=== PATIENT | female | born 1955 | race Caucasian/White ===

== ENCOUNTER → 2016-08-31 | Outpatient (CLI) | payer OTHER ==
[~2016-08-31] VITALS: Ht 167.6 cm; Wt 86.9 kg
[~2016-08-31] MED LIST: 00186-0370-20 IH; ALLI60 MG PO; FLONASEALLERGY NS; LIPITOR20 MG PO; MINIPRESS 1M1 MG/CAP PO; MUCUS RELIEF400 M1 PO; NAPROXEN 3375 MG/TAB PO; NORVASC 10MG10 MG PO; PROVENTIL0.09 MG/A1 IH; SINGULAIR 110 MG/TAB PO; SPIRIVA RE2.5 MCG/Ac IH; VISTARIL50 MG PO; ZOLOFT 100MG100 MG PO
[2016-08-31 11:00] VITALS: BP 142/94; PULSE 63
[2016-08-31 11:39] VITALS: BP 127/66; PULSE 80
[2016-08-31 11:40] VITALS: BP 140/78; PULSE 87
[2016-08-31 11:42] VITALS: BP 145/82; PULSE 78
[2016-08-31 11:43] VITALS: BP 149/77; PULSE 79
== END ==
LOC: COL.CARD 10:41
DX: R06.02 Shortness of breath (principal)
CPT/HCPCS: A9502; J2785